=== PATIENT | male | born 1975 | race Caucasian/White ===

== ENCOUNTER 2019-01-13 23:40 | Inpatient (IN) | payer BC ==
[~2019-01-13] VITALS: Ht 175.3 cm; Wt 76.0 kg
--- NOTE | 2019-01-14 00:29 | PHYS DOC ---
Past Medical History Past Medical History: Anxiety, Hypertension, HI Past Surgical History: Coronary Bypass Surgery Alcohol Use: None Drug Use: None Adult General Chief Complaint Chief Complaint: FLU SYMPTOM HPI HPI Patient is a 43 year old male who presents with nausea, vomitting, and generalized malaise. For the past two days the patient reports body aches and a decreased appetite. Today he started to feel more nauseous and have three episodes of nonbilious, nonbloody emesis. Patient has found nothing to relieve his symptoms. Food seems to make symptoms worse. In addition he has been having diarrhea that started today. Patient denies any chest pain, shortness of breath , cough, constipation, bloody stools, and blood urine. Review of Systems Review of Systems Constitutional: Reports fever and chills [] Eyes: Denies redness, or eye pain [] HENT: Denies nasal congestion or sore throat [] Respiratory: Denies cough or shortness of breath [] Cardiovascular: Denies chest pain or palpitations [] GI: Reports abdominal pain, nausea, vomiting, and diarrhea. Denies bloody stools[] : Denies dysuria or hematuria [] Musculoskeletal: Denies back pain or joint pain [] Integument: Denies rash or skin lesions [] Neurologic: Denies headache or focal weakness [] Complete systems were reviewed and found to be within normal limits, except as documented in this note. Current Medications Current Medications Current Medications Medications (Trade) Dose Ordered Sig/[facility] Start Time Stop Time Status Last Admin Dose Admin Famotidine (Pepcid Vial) 20 mg 1X ONCE 01/14/19 01:00 01/14/19 01:01 DC 01/14/19 01:00 20 MG Ketorolac Tromethamine (Toradol 15mg Vial) 15 mg 1X ONCE 01/14/19 01:00 01/14/19 01:01 DC 01/14/19 01:00 15 MG Ondansetron HCl (Zofran) 4 mg 1X ONCE 01/14/19 01:00 01/14/19 01:01 DC 01/14/19 01:01 4 MG Sodium Chloride 1,000 ml @ 1,000 mls/hr 1X ONCE 01/14/19 01:00 01/14/19 01:59 DC 01/14/19 01:02 1,000 MLS/HR Allergies Allergies Allergies Coded Allergies Type Severity Reaction Last Updated Verified No Known Drug Allergies 01/14/19 No Physical Exam Physical Exam Constitutional: Well developed, well nourished, no acute distress, non-toxic appearance. [] HENT: Normocephalic, atraumatic, bilateral external ears normal, oropharynx moist, no oral exudates, nose normal. [] Eyes: PERRLA, EOMI, conjunctiva normal, no discharge. [] Neck: Normal range of motion, no tenderness, supple, no stridor. [] Cardiovascular:Heart rate regular rhythm, no murmur [] Lungs & Thorax: Bilateral breath sounds clear to auscultation [] Abdomen: Bowel sounds normal, soft, no tenderness, no masses, no pulsatile masses. [] Skin: Warm, dry, no erythema, no rash. [] Back: No tenderness, no CVA tenderness. [] Extremities: No tenderness, no cyanosis, no clubbing, ROM intact, no edema. [] Neurologic: Alert and oriented X 3, normal motor function, normal sensory function, no focal deficits noted. [] Psychologic: Affect normal, judgement normal, mood normal. [] Current Patient Data Vital Signs Vital Signs Date Time Temp Pulse Resp B/P (MAP) Pulse Ox O2 Delivery O2 Flow Rate FiO2 01/13/19 23:46 99.6 121/76 (91) Room Air 99.6 Lab Values Laboratory Tests Test 01/14/19 00:35 01/14/19 00:40 Urine Collection Type Unknown Urine Color Yellow Urine Clarity Cloudy Urine pH 7.0 Urine Specific [place] 1.025 Urine Protein 100 mg/dL (NEG-TRACE) Urine Glucose (UA) Negative mg/dL (NEG) Urine Ketones (Stick) >=80 mg/dL (NEG) Urine Blood Negative (NEG) Urine Nitrite Negative (NEG) Urine Bilirubin Small (NEG) Urine Urobilinogen Dipstick 1.0 mg/dL (0.2 mg/dL) Urine Leukocyte Esterase Negative (NEG) Urine RBC 0 /HPF (0-2) Urine WBC 1-4 /HPF (0-4) Urine Squamous Epithelial Cells Few /LPF Urine Amorphous Sediment Present /HPF Urine Bacteria 0 /HPF (0-FEW) Urine Granular Casts Few /HPF Urine Mucus Marked /LPF White Blood Count 8.6 x10^3/uL (4.0-11.0) Red Blood Count 5.25 x10^6/uL (4.30-5.70) Hemoglobin 14.7 g/dL (13.0-17.5) Hematocrit 42.4 % (39.0-53.0) Mean Corpuscular Volume 81 fL (79-100) Mean Corpuscular Hemoglobin 28 pg (25-35) Mean Corpuscular Hemoglobin Concent 35 g/dL (31-37) Red Cell Distribution Width 12.9 % (11.5-14.5) Platelet Count 174 x10^3/uL (140-400) Neutrophils (%) (Auto) 75 % (31-73) H Lymphocytes (%) (Auto) 14 % (24-48) L Monocytes (%) (Auto) 10 % (0-9) H Eosinophils (%) (Auto) 0 % (0-3) Basophils (%) (Auto) 1 % (0-3) Neutrophils # (Auto) 6.5 x10^3uL (1.8-7.7) Lymphocytes # (Auto) 1.2 x10^3/uL (1.0-4.8) Monocytes # (Auto) 0.9 x10^3/uL (0.0-1.1) Eosinophils # (Auto) 0.0 x10^3/uL (0.0-0.7) Basophils # (Auto) 0.1 x10^3/uL (0.0-0.2) Sodium Level 137 mmol/L (136-145) Potassium Level 2.1 mmol/L (3.5-5.1) *L Chloride Level 95 mmol/L (98-107) L Carbon Dioxide Level 26 mmol/L (21-32) Anion Gap 16 (6-14) H Blood Urea Nitrogen 9 mg/dL (8-26) Creatinine 0.9 mg/dL (0.7-1.3) Estimated GFR (Cockcroft-Gault) 92.1 BUN/Creatinine Ratio 10 (6-20) Glucose Level 119 mg/dL (70-99) H Calcium Level 9.0 mg/dL (8.5-10.1) Total Bilirubin 0.4 mg/dL (0.2-1.0) Aspartate Amino Transferase (AST) 51 U/L (15-37) H Alanine Aminotransferase (ALT) 42 U/L (16-63) Alkaline Phosphatase 64 U/L (46-116) Total Protein 8.0 g/dL (6.4-8.2) Albumin 3.7 g/dL (3.4-5.0) Albumin/Globulin Ratio 0.9 (1.0-1.7) L Lipase 157 U/L (73-393) Laboratory Tests 01/14/19 00:40 Laboratory Tests 01/14/19 00:40 EKG EKG @0208 NSR at 96bpm, NO ST elevation, occasional PVC @0117 NSR at 84bpm, NO ST elevation, Q wave II- III, avF Radiology/Procedures Radiology/Procedures [] Course & Med Decision Making Course & Med Decision Making 43-year-old male presented to the emergency department due to nausea and vomiting. Patient reports that he has been unable to eat or drink anything for two days. Fluids provided with interval appointment. Pertinent Labs reviewed. Labs showed hypokalemia. Potassium replacement initiated, but will need admission for further replacement. Patient requiring admission for further evaluation and treatment. Discussed with (hospitalist) who is in agreement with admission. Discussed findings and plan with patient and family, who acknowledge understanding and agreement.(See chart for details) [] Dragon Disclaimer Dragon Disclaimer This electronic medical record was generated, in whole or in part, using a voice recognition dictation system. Departure Departure Impression: Primary Impression: Hypokalemia Additional Impressions: Nausea vomiting and diarrhea Dehydration Disposition: ADMITTED INPATIENT Admitting Physician: Other (Farela) Condition: STABLE Referrals: GE THOMPSON (PCP) Problem Qualifiers EDUARD SHAH DO Jan 14, 2019 00:29
[2019-01-14 00:51] LABS: BASO # 0.1 x10^3/uL (0.0-0.2); BASO % 1 % (0-3); EOS % 0 % (0-3); HEMATOCRIT 42.4 % (39.0-53.0); HEMOGLOBIN 14.7 g/dL (13.0-17.5); LYMPH # 1.2 x10^3/uL (1.0-4.8); LYMPH % 14 % (24-48); MEAN CORPUSCULAR HEMOGLOBIN 28 pg (25-35); MEAN CORPUSCULAR HGB CONC 35 g/dL (31-37); MEAN CORPUSCULAR VOLUME 81 fL (79-100); MONO # 0.9 x10^3/uL (0.0-1.1); MONO % 10 % (0-9); NEUT # 6.5 x10^3uL (1.8-7.7); NEUT % 75 % (31-73); PLATELET COUNT 174 x10^3/uL (140-400); RED BLOOD COUNT 5.25 x10^6/uL (4.30-5.70); RED CELL DISTRIBUTION WIDTH 12.9 % (11.5-14.5); WHITE BLOOD COUNT 8.6 x10^3/uL (4.0-11.0)
[2019-01-14 00:52] LABS: BILIRUBIN,URINE SMALL (NEG); CLARITY,URINE CLOUDY; COLOR,URINE YELLOW; NITRITE,URINE NEGATIVE (NEG); PROTEIN,URINE 100 mg/dL (NEG-TRACE)
[2019-01-14] MEDS ORDERED: IV NORMAL SALINE 1000ML BAG 1,000 ML IV ONE (01:00)
[2019-01-14] MEDS ORDERED: FAMOTIDINE 20 MG/2 ML VIAL IVP ONE (01:00)
[2019-01-14] MEDS ORDERED: KETOROLAC 15 MG/ML VIAL. IV ONE (01:00)
[2019-01-14] MEDS ORDERED: ONDANSETRON PF 4 MG/2 ML VIAL. IV ONE (01:00)
[2019-01-14 01:01] LABS: AMORPHOUS SEDIMENT,UR PRESENT /HPF; BACTERIA,URINE 0 /HPF (0-FEW); GRANULAR CASTS,URINE FEW /HPF; RBC,URINE 0 /HPF (0-2); SQUAMOUS EPITHELIAL CELL,UR FEW /LPF
[2019-01-14 01:04] LABS: ALBUMIN 3.7 g/dL (3.4-5.0); ALBUMIN/GLOBULIN RATIO 0.9 (1.0-1.7); CREATININE 0.9 mg/dL (0.7-1.3); GFR 92.1; TOTAL BILIRUBIN 0.4 mg/dL (0.2-1.0)
[2019-01-14 01:10] LABS: POTASSIUM 2.1 mmol/L (3.5-5.1)
[2019-01-14] MEDS ORDERED: IV RINGERS,LACTATED 1000ML 1,000 ML IV ONE (02:00)
[2019-01-14] MEDS ORDERED: POTASSIUM CHLORIDE 20 MEQ TABLET.ER. PO ONE ×2 (02:00→11:15)
[2019-01-14] MEDS ORDERED: ONDANSETRON PF 4 MG/2 ML VIAL. IV PRN (02:00)
[2019-01-14] MEDS ORDERED: POTASSIUM CITRATE 10 MEQ TABLET.ER PO ONE (02:45)
[2019-01-14] MEDS ORDERED: POTASSIUM CHLORIDE 20 MEQ/15 ML ORAL LIQUID. PO ONE (03:00)
[2019-01-14 03:35] VITALS: BP 96/57
[2019-01-14] MEDS ORDERED: CHLO25TA2 PO (06:06)
[2019-01-14] MEDS ORDERED: LOVA40TA2 PO (06:06)
[2019-01-14] MEDS ORDERED: METO50TA4 PO (06:06)
[2019-01-14] MEDS ORDERED: OMEP40CA5 PO (06:06)
[2019-01-14] MEDS ORDERED: ASPI-630 PO (06:07)
[2019-01-14] MEDS ORDERED: TRAM50TA PO (06:09)
[2019-01-14 07:00] VITALS: BP 106/55
--- NOTE | 2019-01-14 07:15 | NUR ---
Call placed to answering service and message left for Dr Finney re: concern for needing more potassium replacement. Looks as though pt received 40meq po in ER for K of 2.1. Waiting on return call or orders.
--- NOTE | 2019-01-14 07:50 | EKG ---
[facility] [address] [place] [address] Test Date: 2019-01-14 Test Time: 02:08:47 Pat Name: GISELL REYNOLDS Department: Room: [facility] Gender: M Cardiac Technologist: : 1975 Requested By: EDUARD SHAH Order Number: [id number] Reading MD: Jordan Hayes MD Measurements Intervals [place] Rate: 96 P: 26 AK: 154 QRS: 16 QRSD: 92 T: 131 QT: 370 QTc: 468 Interpretive Statements SINUS RHYTHM PVC'S NON-SPECIFIC ST/T CHANGES Electronically Signed On 01-15-2019 9:35:27 CDT by Jordan Hayes MD
--- NOTE | 2019-01-14 07:51 | EKG ---
[facility] [address] [place] [address] Test Date: 2019-01-14 Test Time: 01:17:14 Pat Name: GISELL REYNOLDS Department: Room: [facility] Gender: M Powderman: : 1975 Requested By: MANUEL ZHAO Order Number: [id number] Reading MD: Jordan Hayes MD Measurements Intervals [place] Rate: 84 P: 48 RI: 162 QRS: 18 QRSD: 96 T: 103 QT: 382 QTc: 455 Interpretive Statements SINUS RHYTHM NON-SPECIFIC ST/T CHANGES Electronically Signed On 01-15-2019 9:34:53 CDT by Jordan Hayes MD
[2019-01-14 10:25] LABS: PHOSPHORUS 1.8 mg/dL (2.6-4.7)
[2019-01-14 10:59] VITALS: BP 118/73
--- NOTE | 2019-01-14 11:52 | SSS ---
ADMIT DATE: DATE OF DISCHARGE: 01/15/2019. CHIEF COMPLAINT: Flu symptoms. HISTORY OF PRESENT ILLNESS: The patient is a pleasant 43-year-old male who had a 3-vessel bypass when he was 29 years old. He apparently has a genetic hypercholesterolemia. At this time, he presents with flu symptoms. He has been having nausea, vomiting, muscle aches, weakness. While in the ER, he was noted to be hypokalemic with a potassium of 2.1. Rates his symptoms at 10/10. He has associated anxiety, has been occurring for several days, described it as agonizing. I discussed the case with ER physician. We have admitted the patient. We are going to replace his potassium and hope to discharge tomorrow if he is stable. PAST MEDICAL HISTORY: Anxiety, hypertension, myocardial infarction, cardiac stents. Three-vessel cardiac bypass surgery at age 29. ALLERGIES: None. FAMILY HISTORY: Coronary artery disease. SOCIAL HISTORY: Does not drink, smoke or take drugs. MEDICATIONS: Reviewed, please refer to the MRAD. REVIEW OF SYSTEMS: GENERAL: No history of weight change, weakness or fevers. SKIN: No bruising, hair changes or rashes. EYES: No blurred, double or loss of vision. NOSE AND THROAT: No history of nosebleeds, hoarseness or sore throat. HEART: No history of palpitations, chest pain or shortness of breath on exertion. LUNGS: Denies cough, hemoptysis, wheezing or shortness of breath. GASTROINTESTINAL: He complains of nausea. GENITOURINARY: No history of frequency, urgency, hesitancy or nocturia. NEUROLOGIC: Denies history of numbness, tingling, tremor or weakness. PSYCHIATRIC: No history of panic, anxiety or depression. ENDOCRINE: No history of heat or cold intolerance, polyuria or polydipsia. EXTREMITIES: Denies muscle weakness, joint pain, pain on walking or stiffness. PHYSICAL EXAMINATION: VITAL SIGNS: Temperature afebrile, pulse 92, respirations 18, blood pressure 106/55. GENERAL: He is alert, cooperative. HEART: Normal S1, S2. LUNGS: Clear. ABDOMEN: Soft. EXTREMITIES: No edema. SKIN: No rash. ENDOCRINE: No thyromegaly. LYMPHATICS: No cervical nodes. HEMATOPOIETIC: No bruising. PSYCHIATRIC: He is stable. LABORATORY DATA: Sodium is 137, potassium 2.1, chloride 95, bicarbonate 26, BUN 9, creatinine 0.9, glucose 119. Hematology is normal. Urinalysis negative. ASSESSMENT AND PLAN: Gastroenteritis with secondary hypokalemia. The patient has been admitted. We are replacing his potassium, frequent labs, IV fluids, PT, OT, DVT prophylaxis. Full code. REZA CABRERA DO DR: LIU/earl JOB#: [id number] / [id number]
--- NOTE | 2019-01-14 12:00 | PDOC2 ---
GI CONSULT Reason For Consult: blood in stool HPI: HPI: Pleasant 43 y/o male who has been ill for a few days w/ n/v, diarrhea, and weakness. Evaluated in ER and admitted w/ hypokalemia. Called by RN this morning - GI asked to see re: blood in stool. He reports yellow blobs of stool w/ possibly some thin pinkish blood. Tolerating clears. H/o GERD on PPI - scheduled for EGD @ [facility] next month. No dysphagia. No hematemesis. No significant abd pain. Typically no diarrhea or constipation. No melena. Has intentionally lost weight w/ dietary changes. No h/o GI bleeding, PUD, or liver, pancreas, or GB problems. No previous colonoscopy. CAD on ASA. No recent atbx use. PMH: PMH: CAD, ME, HTN, HLE, anxiety, GERD CABG FH: Family History: No pertinent hx Social History: Smoke: No ALCOHOL: rare Drugs: None ROS: GEN: Denies fevers, chills, sweats HEENT: Denies blurred vision, sore throat CV: Denies chest pain RESP: Denies shortness of air, cough GI: Per HPI : Denies hematuria, dysuria ENDO: Denies weight changes NEURO: Denies confusion, dizziness MSK: +weakness SKIN: Denies jaundice, pruritus Vitals: Vitals: Vital Signs Date Time Temp Pulse Resp B/P (MAP) Pulse Ox O2 Delivery O2 Flow Rate FiO2 01/14/19 10:59 99.3 81 18 118/73 (88) 96 Room Air 99.3 Labs: Labs: Laboratory Tests Test 01/14/19 00:35 01/14/19 00:40 01/14/19 09:40 Urine Collection Type Unknown Urine Color Yellow Urine Clarity Cloudy Urine pH 7.0 Urine Specific [place] 1.025 Urine Protein 100 mg/dL (NEG-TRACE) Urine Glucose (UA) Negative mg/dL (NEG) Urine Ketones (Stick) >=80 mg/dL (NEG) Urine Blood Negative (NEG) Urine Nitrite Negative (NEG) Urine Bilirubin Small (NEG) Urine Urobilinogen Dipstick 1.0 mg/dL (0.2 mg/dL) Urine Leukocyte Esterase Negative (NEG) Urine RBC 0 /HPF (0-2) Urine WBC 1-4 /HPF (0-4) Urine Squamous Epithelial Cells Few /LPF Urine Amorphous Sediment Present /HPF Urine Bacteria 0 /HPF (0-FEW) Urine Granular Casts Few /HPF Urine Mucus Marked /LPF White Blood Count 8.6 x10^3/uL (4.0-11.0) Red Blood Count 5.25 x10^6/uL (4.30-5.70) Hemoglobin 14.7 g/dL (13.0-17.5) 13.6 g/dL (13.0-17.5) Hematocrit 42.4 % (39.0-53.0) Mean Corpuscular Volume 81 fL (79-100) Mean Corpuscular Hemoglobin 28 pg (25-35) Mean Corpuscular Hemoglobin Concent 35 g/dL (31-37) Red Cell Distribution Width 12.9 % (11.5-14.5) Platelet Count 174 x10^3/uL (140-400) Neutrophils (%) (Auto) 75 % (31-73) Lymphocytes (%) (Auto) 14 % (24-48) Monocytes (%) (Auto) 10 % (0-9) Eosinophils (%) (Auto) 0 % (0-3) Basophils (%) (Auto) 1 % (0-3) Neutrophils # (Auto) 6.5 x10^3uL (1.8-7.7) Lymphocytes # (Auto) 1.2 x10^3/uL (1.0-4.8) Monocytes # (Auto) 0.9 x10^3/uL (0.0-1.1) Eosinophils # (Auto) 0.0 x10^3/uL (0.0-0.7) Basophils # (Auto) 0.1 x10^3/uL (0.0-0.2) Sodium Level 137 mmol/L (136-145) Potassium Level 2.1 mmol/L (3.5-5.1) 2.4 mmol/L (3.5-5.1) Chloride Level 95 mmol/L (98-107) Carbon Dioxide Level 26 mmol/L (21-32) Anion Gap 16 (6-14) Blood Urea Nitrogen 9 mg/dL (8-26) Creatinine 0.9 mg/dL (0.7-1.3) Estimated GFR (Cockcroft-Gault) 92.1 BUN/Creatinine Ratio 10 (6-20) Glucose Level 119 mg/dL (70-99) Calcium Level 9.0 mg/dL (8.5-10.1) Total Bilirubin 0.4 mg/dL (0.2-1.0) Aspartate Amino Transf (AST/SGOT) 51 U/L (15-37) Alanine Aminotransferase (ALT/SGPT) 42 U/L (16-63) Alkaline Phosphatase 64 U/L (46-116) Total Protein 8.0 g/dL (6.4-8.2) Albumin 3.7 g/dL (3.4-5.0) Albumin/Globulin Ratio 0.9 (1.0-1.7) Lipase 157 U/L (73-393) Phosphorus Level 1.8 mg/dL (2.6-4.7) Magnesium Level 2.0 mg/dL (1.8-2.4) Allergies: Coded Allergies: No Known Drug Allergies (Unverified , 01/14/19) Medications: Current Medications Medications (Trade) Dose Ordered Sig/Letty Route PRN Reason Start Time Stop Time Status Last Admin Dose Admin Ondansetron HCl (Zofran) 4 mg 1X ONCE IV 01/14/19 01:00 01/14/19 01:01 CT 01/14/19 01:01 Famotidine (Pepcid Vial) 20 mg 1X ONCE IVP 01/14/19 01:00 01/14/19 01:01 CT 01/14/19 01:00 Ketorolac Tromethamine (Toradol 15mg Vial) 15 mg 1X ONCE IV 01/14/19 01:00 01/14/19 01:01 CT 01/14/19 01:00 Sodium Chloride 1,000 ml @ 1,000 mls/hr 1X ONCE IV 01/14/19 01:00 01/14/19 01:59 CT 01/14/19 01:02 Ringer's Solution 1,000 ml @ 150 mls/hr 1X ONCE IV 01/14/19 02:00 01/14/19 08:39 CT 01/14/19 03:43 Ondansetron HCl (Zofran) 4 mg PRN Q8HRS PRN IV NAUSEA/VOMITING 1ST CHOICE 01/14/19 02:00 01/15/19 01:59 01/14/19 10:17 Potassium Chloride (KCl Oral Soln) 40 meq 1X ONCE PO 01/14/19 03:00 01/14/19 03:01 DC 01/14/19 02:48 Imaging: Imaging: none PE: GEN: NAD HEENT: Atraumatic, PERRL LUNGS: CTAB HEART: RRR ABD: NABS, S/ND/NT EXTREMITY: No edema SKIN: No rashes, no jaundice NEURO/PSYCH: A & O 3 A/P: A/P: N/v, diarrhea Hypokalemia - per primary GERD - on PPI CRC screen - average risk Elevated AST CAD on ASA -- ?infectious Plans to check hemoccult, will also add fecal leukocytes and rotavirus. ( Searched for Norovirus - apparently not available?) No imaging - can check x-ray. Agree w/ continuing PPI. Okay to ADAT. Follow-up w/ [facility] for EGD as planned. Consider holding chlorthalidone w/ hypokalemia. NORMAN BOWERS Jan 14, 2019 12:00
[2019-01-14] MEDS: PANTOPRAZOLE 40 MG TABLET.DR. PO SCH (12:14)
[2019-01-14] MEDS: METOPROLOL SUCC 24HR ER 50 MG TAB.ER.24H. PO SCH (12:14)
[2019-01-14] MEDS ORDERED: CHLORTHALIDONE 25 MG TABLET. PO SCH ×2 (12:30→21:00)
--- NOTE | 2019-01-14 14:05 | RAD ---
EXAM: Abdomen acute complete. HISTORY: Diarrhea. Pain. COMPARISON: None. FINDINGS: A frontal view of the chest and frontal upright and supine views of the abdomen are obtained. There is no infiltrate, pleural effusion or pneumothorax. The heart is normal in size. There is evidence of prior median sternotomy. There are nonspecific air-filled loops of bowel within the abdomen. There is no evidence of bowel obstruction. There is no free air. IMPRESSION: 1. No acute pulmonary finding. 2. Nonobstructive bowel gas pattern. Electronically signed by: Mila Sotomayor MD (01/14/2019 2:03 PM) [place] [id number]
[2019-01-14 15:00] VITALS: BP 112/79
[2019-01-14 15:26] LABS: FECAL OB PT NEGATIVE (NEG)
--- NOTE | 2019-01-14 16:04 | NUR ---
SW following pt for anticipated dc needs. Chart reviewed. Pt lives at home with family. Pt is independent with ADL's and no skilled needs at this time. No dc recommendation and SW needs noted at this time. Will continue to assess.
[2019-01-14 19:51] VITALS: BP 131/87
[2019-01-14] MEDS: HYDROcodone/APAP 5/325MG 1 TAB TABLET PO PRN (20:56)
[2019-01-14] MEDS: ATORVASTATIN CALCIUM 10 MG TABLET. PO SCH (20:56)
[2019-01-14] MEDS: POTASSIUM PHOSPHATE DIBASIC 13.6 MMOL in IV DEXTROSE 5% 100ML 100 ML IV SCH ×2 (20:57→22:23)
[2019-01-14 23:11] VITALS: BP 130/73
[2019-01-15 03:27] VITALS: BP 125/82
[2019-01-15 07:15] VITALS: BP 118/74
[2019-01-15] MEDS: PANTOPRAZOLE 40 MG TABLET.DR. PO SCH (08:07)
[2019-01-15] MEDS: METOPROLOL SUCC 24HR ER 50 MG TAB.ER.24H. PO SCH (08:08)
[2019-01-15] MEDS: HYDROcodone/APAP 5/325MG 1 TAB TABLET PO PRN ×2 (08:12→20:14)
[2019-01-15 09:00] LABS: BASO # 0.1 x10^3/uL (0.0-0.2); BASO % 1 % (0-3); EOS % 0 % (0-3); HEMATOCRIT 41.3 % (39.0-53.0); HEMOGLOBIN 14.6 g/dL (13.0-17.5); LYMPH # 1.6 x10^3/uL (1.0-4.8); LYMPH % 24 % (24-48); MEAN CORPUSCULAR HEMOGLOBIN 29 pg (25-35); MEAN CORPUSCULAR HGB CONC 35 g/dL (31-37); MEAN CORPUSCULAR VOLUME 81 fL (79-100); MONO # 0.9 x10^3/uL (0.0-1.1); MONO % 13 % (0-9); NEUT # 4.2 x10^3uL (1.8-7.7); NEUT % 62 % (31-73); PLATELET COUNT 169 x10^3/uL (140-400); RED BLOOD COUNT 5.12 x10^6/uL (4.30-5.70); RED CELL DISTRIBUTION WIDTH 13.3 % (11.5-14.5); WHITE BLOOD COUNT 6.8 x10^3/uL (4.0-11.0)
[2019-01-15 09:18] LABS: CALCIUM 8.9 mg/dL (8.5-10.1); CREATININE 0.8 mg/dL (0.7-1.3); GFR 105.5
[2019-01-15 09:22] LABS: POTASSIUM 2.4 mmol/L (3.5-5.1)
--- NOTE | 2019-01-15 09:31 | NUR ---
Received call from Aracelis in lab with critical potassium 2.4. Dr. aHrp on unit, notified, and orders received.
[2019-01-15] MEDS ORDERED: POTASSIUM CHLORIDE 20 MEQ TABLET.ER. PO ONE ×4 (10:30→20:00)
--- NOTE | 2019-01-15 10:34 | PDOC ---
PROGRESS NOTES Chief Complaint Chief Complaint CC: Dehydration w/ Nausea/Vomiting/Diarrhea Hypokalemia Hypophosphatemia CAD [place] HTN CABG Anxiety GERD History of Present Illness History of Present Illness Pt seen and examined this morning Resting comfortably no new episodes of emesis No new complaints Vitals Vitals Vital Signs Date Time Temp Pulse Resp B/P (MAP) Pulse Ox O2 Delivery O2 Flow Rate FiO2 01/15/19 09:12 17 01/15/19 08:12 Room Air 01/15/19 08:08 84 118/74 01/15/19 07:15 99.1 97 99.1 Physical Exam General: Alert, Oriented X3, Cooperative, No acute distress Heart: Regular rate, Normal S1, Normal S2, No murmurs Lungs: Clear, Other (no crackles or wheezing) Abdomen: Normal bowel sounds, Soft, No tenderness Extremities: No clubbing, No cyanosis, No edema, Normal pulses Skin: No rashes, No breakdown, No significant lesion Labs LABS Laboratory Tests Test 01/14/19 13:00 01/14/19 13:05 01/15/19 08:33 Stool Occult Blood Negative (NEG) Glucose (Fingerstick) 120 mg/dL (70-99) White Blood Count 6.8 x10^3/uL (4.0-11.0) Red Blood Count 5.12 x10^6/uL (4.30-5.70) Hemoglobin 14.6 g/dL (13.0-17.5) Hematocrit 41.3 % (39.0-53.0) Mean Corpuscular Volume 81 fL (79-100) Mean Corpuscular Hemoglobin 29 pg (25-35) Mean Corpuscular Hemoglobin Concent 35 g/dL (31-37) Red Cell Distribution Width 13.3 % (11.5-14.5) Platelet Count 169 x10^3/uL (140-400) Neutrophils (%) (Auto) 62 % (31-73) Lymphocytes (%) (Auto) 24 % (24-48) Monocytes (%) (Auto) 13 % (0-9) Eosinophils (%) (Auto) 0 % (0-3) Basophils (%) (Auto) 1 % (0-3) Neutrophils # (Auto) 4.2 x10^3uL (1.8-7.7) Lymphocytes # (Auto) 1.6 x10^3/uL (1.0-4.8) Monocytes # (Auto) 0.9 x10^3/uL (0.0-1.1) Eosinophils # (Auto) 0.0 x10^3/uL (0.0-0.7) Basophils # (Auto) 0.1 x10^3/uL (0.0-0.2) Sodium Level 137 mmol/L (136-145) Potassium Level 2.4 mmol/L (3.5-5.1) Chloride Level 95 mmol/L (98-107) Carbon Dioxide Level 29 mmol/L (21-32) Anion Gap 13 (6-14) Blood Urea Nitrogen 5 mg/dL (8-26) Creatinine 0.8 mg/dL (0.7-1.3) Estimated GFR (Cockcroft-Gault) 105.5 Glucose Level 97 mg/dL (70-99) Calcium Level 8.9 mg/dL (8.5-10.1) Review of Systems Review of Systems Denies F/C, CP or SOA Assessment and Plan Assessmemt and Plan Assessment: Gastroenteritis Hypokalemia Dehydration w/ Nausea/Vomiting/Diarrhea Hypophosphatemia CAD [place] HTN CABG Anxiety GERD Congenital Hypercholesterolemia Plan: 40mg PO KCl ordered, recheck potassium Hold diuretic given low K Advanced diet as tolerated Hemoccult (-), stool sample pending, appreciate GI recommendations Home Rx DVT ppx PT/OT orders Problems Medical Problems: (1) Dehydration Status: Acute (2) Hypokalemia Status: Acute (3) Nausea vomiting and diarrhea Status: Acute Comment Review of Relevant I have reviewed the following items marisel (where applicable) has been applied. Labs Laboratory Tests Test 01/14/19 00:35 01/14/19 00:40 01/14/19 09:40 01/14/19 13:00 Urine Collection Type Unknown Urine Color Yellow Urine Clarity Cloudy Urine pH 7.0 Urine Specific [place] 1.025 Urine Protein 100 mg/dL (NEG-TRACE) Urine Glucose (UA) Negative mg/dL (NEG) Urine Ketones (Stick) >=80 mg/dL (NEG) Urine Blood Negative (NEG) Urine Nitrite Negative (NEG) Urine Bilirubin Small (NEG) Urine Urobilinogen Dipstick 1.0 mg/dL (0.2 mg/dL) Urine Leukocyte Esterase Negative (NEG) Urine RBC 0 /HPF (0-2) Urine WBC 1-4 /HPF (0-4) Urine Squamous Epithelial Cells Few /LPF Urine Amorphous Sediment Present /HPF Urine Bacteria 0 /HPF (0-FEW) Urine Granular Casts Few /HPF Urine Mucus Marked /LPF White Blood Count 8.6 x10^3/uL (4.0-11.0) Red Blood Count 5.25 x10^6/uL (4.30-5.70) Hemoglobin 14.7 g/dL (13.0-17.5) 13.6 g/dL (13.0-17.5) Hematocrit 42.4 % (39.0-53.0) Mean Corpuscular Volume 81 fL (79-100) Mean Corpuscular Hemoglobin 28 pg (25-35) Mean Corpuscular Hemoglobin Concent 35 g/dL (31-37) Red Cell Distribution Width 12.9 % (11.5-14.5) Platelet Count 174 x10^3/uL (140-400) Neutrophils (%) (Auto) 75 % (31-73) Lymphocytes (%) (Auto) 14 % (24-48) Monocytes (%) (Auto) 10 % (0-9) Eosinophils (%) (Auto) 0 % (0-3) Basophils (%) (Auto) 1 % (0-3) Neutrophils # (Auto) 6.5 x10^3uL (1.8-7.7) Lymphocytes # (Auto) 1.2 x10^3/uL (1.0-4.8) Monocytes # (Auto) 0.9 x10^3/uL (0.0-1.1) Eosinophils # (Auto) 0.0 x10^3/uL (0.0-0.7) Basophils # (Auto) 0.1 x10^3/uL (0.0-0.2) Sodium Level 137 mmol/L (136-145) Potassium Level 2.1 mmol/L (3.5-5.1) 2.4 mmol/L (3.5-5.1) Chloride Level 95 mmol/L (98-107) Carbon Dioxide Level 26 mmol/L (21-32) Anion Gap 16 (6-14) Blood Urea Nitrogen 9 mg/dL (8-26) Creatinine 0.9 mg/dL (0.7-1.3) Estimated GFR (Cockcroft-Gault) 92.1 BUN/Creatinine Ratio 10 (6-20) Glucose Level 119 mg/dL (70-99) Calcium Level 9.0 mg/dL (8.5-10.1) Total Bilirubin 0.4 mg/dL (0.2-1.0) Aspartate Amino Transf (AST/SGOT) 51 U/L (15-37) Alanine Aminotransferase (ALT/SGPT) 42 U/L (16-63) Alkaline Phosphatase 64 U/L (46-116) Total Protein 8.0 g/dL (6.4-8.2) Albumin 3.7 g/dL (3.4-5.0) Albumin/Globulin Ratio 0.9 (1.0-1.7) Lipase 157 U/L (73-393) Phosphorus Level 1.8 mg/dL (2.6-4.7) Magnesium Level 2.0 mg/dL (1.8-2.4) Stool Occult Blood Negative (NEG) Test 01/14/19 13:05 01/15/19 08:33 Glucose (Fingerstick) 120 mg/dL (70-99) White Blood Count 6.8 x10^3/uL (4.0-11.0) Red Blood Count 5.12 x10^6/uL (4.30-5.70) Hemoglobin 14.6 g/dL (13.0-17.5) Hematocrit 41.3 % (39.0-53.0) Mean Corpuscular Volume 81 fL (79-100) Mean Corpuscular Hemoglobin 29 pg (25-35) Mean Corpuscular Hemoglobin Concent 35 g/dL (31-37) Red Cell Distribution Width 13.3 % (11.5-14.5) Platelet Count 169 x10^3/uL (140-400) Neutrophils (%) (Auto) 62 % (31-73) Lymphocytes (%) (Auto) 24 % (24-48) Monocytes (%) (Auto) 13 % (0-9) Eosinophils (%) (Auto) 0 % (0-3) Basophils (%) (Auto) 1 % (0-3) Neutrophils # (Auto) 4.2 x10^3uL (1.8-7.7) Lymphocytes # (Auto) 1.6 x10^3/uL (1.0-4.8) Monocytes # (Auto) 0.9 x10^3/uL (0.0-1.1) Eosinophils # (Auto) 0.0 x10^3/uL (0.0-0.7) Basophils # (Auto) 0.1 x10^3/uL (0.0-0.2) Sodium Level 137 mmol/L (136-145) Potassium Level 2.4 mmol/L (3.5-5.1) Chloride Level 95 mmol/L (98-107) Carbon Dioxide Level 29 mmol/L (21-32) Anion Gap 13 (6-14) Blood Urea Nitrogen 5 mg/dL (8-26) Creatinine 0.8 mg/dL (0.7-1.3) Estimated GFR (Cockcroft-Gault) 105.5 Glucose Level 97 mg/dL (70-99) Calcium Level 8.9 mg/dL (8.5-10.1) Laboratory Tests Test 01/14/19 13:00 01/14/19 13:05 01/15/19 08:33 Stool Occult Blood Negative (NEG) Glucose (Fingerstick) 120 mg/dL (70-99) White Blood Count 6.8 x10^3/uL (4.0-11.0) Red Blood Count 5.12 x10^6/uL (4.30-5.70) Hemoglobin 14.6 g/dL (13.0-17.5) Hematocrit 41.3 % (39.0-53.0) Mean Corpuscular Volume 81 fL (79-100) Mean Corpuscular Hemoglobin 29 pg (25-35) Mean Corpuscular Hemoglobin Concent 35 g/dL (31-37) Red Cell Distribution Width 13.3 % (11.5-14.5) Platelet Count 169 x10^3/uL (140-400) Neutrophils (%) (Auto) 62 % (31-73) Lymphocytes (%) (Auto) 24 % (24-48) Monocytes (%) (Auto) 13 % (0-9) Eosinophils (%) (Auto) 0 % (0-3) Basophils (%) (Auto) 1 % (0-3) Neutrophils # (Auto) 4.2 x10^3uL (1.8-7.7) Lymphocytes # (Auto) 1.6 x10^3/uL (1.0-4.8) Monocytes # (Auto) 0.9 x10^3/uL (0.0-1.1) Eosinophils # (Auto) 0.0 x10^3/uL (0.0-0.7) Basophils # (Auto) 0.1 x10^3/uL (0.0-0.2) Sodium Level 137 mmol/L (136-145) Potassium Level 2.4 mmol/L (3.5-5.1) Chloride Level 95 mmol/L (98-107) Carbon Dioxide Level 29 mmol/L (21-32) Anion Gap 13 (6-14) Blood Urea Nitrogen 5 mg/dL (8-26) Creatinine 0.8 mg/dL (0.7-1.3) Estimated GFR (Cockcroft-Gault) 105.5 Glucose Level 97 mg/dL (70-99) Calcium Level 8.9 mg/dL (8.5-10.1) Microbiology 01/14/19 Fecal Leukocyte Stain - Final, Complete Medications Current Medications Ondansetron HCl (Zofran) 4 mg 1X ONCE IV Last administered on 01/14/19at 01:01; Start 01/14/19 at 01:00; Stop 01/14/19 at 01:01; Status DC Famotidine (Pepcid Vial) 20 mg 1X ONCE IVP Last administered on 01/14/19at 01:00 ; Start 01/14/19 at 01:00; Stop 01/14/19 at 01:01; Status DC Ketorolac Tromethamine (Toradol 15mg Vial) 15 mg 1X ONCE IV Last administered on 01/14/19at 01:00; Start 01/14/19 at 01:00; Stop 01/14/19 at 01:01; Status DC Sodium Chloride 1,000 ml @ 1,000 mls/hr 1X ONCE IV Last administered on at 01:02; Start 01/14/19 at 01:00; Stop 01/14/19 at 01:59; Status DC Potassium Chloride (Klor-Con) 40 meq 1X ONCE PO ; Start 01/14/19 at 02:00; Stop 01/14/19 at 02:38; Status DC Ringer's Solution 1,000 ml @ 150 mls/hr 1X ONCE IV Last administered on 03:43; Start 01/14/19 at 02:00; Stop 01/14/19 at 08:39; Status DC Ondansetron HCl (Zofran) 4 mg PRN Q8HRS PRN IV NAUSEA/VOMITING 1ST CHOICE Last administered on 01/14/19 10:17; Start 01/14/19 at 02:00; Stop 01/15/19 at 01:59; Status DC Potassium Citrate (Urocit-K) 50 meq 1X ONCE PO ; Start 01/14/19 at 02:45; Stop 01/14/19 at 02:46; Status UNV Potassium Chloride (KCl Oral Soln) 40 meq 1X ONCE PO Last administered on 02:48; Start 01/14/19 at 03:00; Stop 01/14/19 at 03:01; Status DC Potassium Chloride (Klor-Con) 40 meq 1X ONCE PO Last administered on 01/14/19 12:14; Start 01/14/19 at 11:15; Stop 01/14/19 at 11:16; Status DC Chlorthalidone (Thalitone) 25 mg DAILY PO ; Start 01/14/19 at 12:30; Stop at 14:31; Status DC Metoprolol Succinate (Toprol Xl) 50 mg DAILY PO Last administered on 01/15/19 08:08; Start 01/14/19 at 12:30 Tramadol HCl (Ultram) 50 mg PRN Q8HRS PRN PO MILD PAIN; Start 01/14/19 at 11:30 Atorvastatin Calcium (Lipitor) 10 mg QHS PO Last administered on 01/14/19 20:56 ; Start 01/14/19 at 21:00 Pantoprazole Sodium (Protonix) 40 mg DAILYAC PO Last administered on 01/15/19 08:07; Start 01/14/19 at 12:30 Chlorthalidone (Thalitone) 25 mg QHS PO Last administered on 01/14/19 20:57; Start 01/14/19 at 21:00; Status Future Hold Potassium Phosphate 13.6 mmol/Dextrose 104.5333 ml @ 52.267 m... Q2H IV Last administered on 01/14/19 22:23; Start 01/14/19 at 17:30; Stop 01/14/19 at 21:29; Status DC Acetaminophen/ Hydrocodone Bitart (Lortab 5/325) 1 tab QIDPRN PRN PO MOD- SEVERE PAIN Last administered on 01/15/19at 08:12; Start 01/14/19 at 19:30 Potassium Chloride (Klor-Con) 40 meq 1X ONCE PO Last administered on 01/15/19at 09:58; Start 01/15/19 at 10:30; Stop 01/15/19 at 10:31 Potassium Chloride (Klor-Con) 40 meq 1X ONCE PO ; Start 01/15/19 at 14:00; Stop 01/15/19 at 14:01 Active Scripts Active Reported Tramadol Hcl 50 Mg Tablet 50 Mg PO Q8HRS PRN Aspirin 81 Mg Tab.chew 1 Tab PO DAILY Omeprazole 40 Mg Capsule.dr 40 Mg PO DAILY Lovastatin 40 Mg Tablet 40 Mg PO HS Toprol Xl (Metoprolol Succinate) 50 Mg Tab.er.24h 50 Mg PO DAILY Chlorthalidone 25 Mg Tablet 25 Mg PO DAILY Vitals/I & O Vital Sign - Last 24 Hours 01/14/19 01/14/19 01/14/19 01/14/19 10:59 12:14 15:00 19:51 Temp 99.3 98.9 101.7 99.3 98.9 101.7 Pulse 81 81 83 87 Resp 18 18 18 B/P (MAP) 118/73 (88) 118/73 112/79 (90) 131/87 (102) Pulse Ox 96 99 96 O2 Delivery Room Air Room Air Room Air 01/14/19 01/14/19 01/14/19 01/15/19 20:56 21:00 23:11 03:27 Temp 98.4 99.5 98.4 99.5 Pulse 75 79 Resp 18 18 18 B/P (MAP) 130/73 (92) 125/82 (96) Pulse Ox 96 97 O2 Delivery Room Air Room Air Room Air Room Air 01/15/19 01/15/19 01/15/19 01/15/19 07:15 08:08 08:12 09:12 Temp 99.1 99.1 Pulse 84 84 Resp 18 17 17 B/P (MAP) 118/74 (89) 118/74 Pulse Ox 97 O2 Delivery Room Air Room Air Intake and Output 4/3/19 4/3/19 4/4/19 15:00 23:00 07:00 Intake Total 880 ml 590 ml 1050 ml Balance 880 ml 590 ml 1050 ml REZA CABRERA III DO Jan 15, 2019 10:34
[2019-01-15 11:04] VITALS: BP 124/85
--- NOTE | 2019-01-15 12:12 | PDOC ---
Subjective: Subjective: Tolerating PO - had cereal for breakfast, really hungry now. No abd pain. Hasn't had a stool in a long time. No bleeding. Objective: Vital Signs: Vital Signs Date Time Temp Pulse Resp B/P (MAP) Pulse Ox O2 Delivery O2 Flow Rate FiO2 01/15/19 11:04 98.8 71 20 124/85 (98) 98 Room Air 98.8 Labs: Laboratory Tests Test 01/14/19 13:00 01/14/19 13:05 01/15/19 08:33 Stool Occult Blood Negative Glucose (Fingerstick) 120 mg/dL White Blood Count 6.8 x10^3/uL Red Blood Count 5.12 x10^6/uL Hemoglobin 14.6 g/dL Hematocrit 41.3 % Mean Corpuscular Volume 81 fL Mean Corpuscular Hemoglobin 29 pg Mean Corpuscular Hemoglobin Concent 35 g/dL Red Cell Distribution Width 13.3 % Platelet Count 169 x10^3/uL Neutrophils (%) (Auto) 62 % Lymphocytes (%) (Auto) 24 % Monocytes (%) (Auto) 13 % Eosinophils (%) (Auto) 0 % Basophils (%) (Auto) 1 % Neutrophils # (Auto) 4.2 x10^3uL Lymphocytes # (Auto) 1.6 x10^3/uL Monocytes # (Auto) 0.9 x10^3/uL Eosinophils # (Auto) 0.0 x10^3/uL Basophils # (Auto) 0.1 x10^3/uL Sodium Level 137 mmol/L Potassium Level 2.4 mmol/L Chloride Level 95 mmol/L Carbon Dioxide Level 29 mmol/L Anion Gap 13 Blood Urea Nitrogen 5 mg/dL Creatinine 0.8 mg/dL Estimated GFR (Cockcroft-Gault) 105.5 Glucose Level 97 mg/dL Calcium Level 8.9 mg/dL FECAL WBC,GRAM STAIN Final WBCS NONE PRESENT PE: GEN: NAD LUNGS: CTAB HEART: RRR ABD: NABS, S/ND/NT NEURO/PSYCH: A & O 3 A/P: N/v, diarrhea - resolved Hypokalemia - ongoing, per primary -- GI symptoms resolved, hypokalemia persists. NORMAN BOWERS Jan 15, 2019 12:12
[2019-01-15] MEDS: traMADol 50 MG TABLET PO PRN (14:32)
--- NOTE | 2019-01-15 14:47 | DS ---
DATE OF DISCHARGE: 01/15/2019 ADMISSION DIAGNOSES: 1. Gastroenteritis with hypokalemia and dehydration. 2. History of coronary bypass at age 29. DISCHARGE DIAGNOSES: 1. Resolving gastroenteritis. 2. Resolving hypokalemia. HOSPITAL COURSE: The patient is a pleasant 43-year-old male who basically presented with gastroenteritis with nausea, vomiting and abdominal pain and had hypokalemia. He was admitted. We are replacing his potassium. He has received several doses. This morning, I saw him and I examined him. His heart tones were normal. His lungs were clear. He states he wants to go home. I discussed the case with the case management team and the nurse who is taking care of him. If he continues to do better this afternoon and if his potassium normalizes, we plan to discharge. DISPOSITION: Home. ACTIVITY: As tolerated. DIET: Low sodium. MEDICATIONS: Please see the MRAD. TOTAL TIME ON DISCHARGE: 31 minutes. REZA CABRERA DO DR: LIU/earl JOB#: [id number] / [id number]
[2019-01-15 15:02] VITALS: BP 120/79
--- NOTE | 2019-01-15 17:37 | EKG ---
[facility] [address] [place] [address] Test Date: 2019-01-15 Test Time: 17:23:51 Pat Name: GISELL REYNOLDS Department: Room: [facility] Gender: M Bag Inspector: : 1975 Requested By: REZA CABRERA Order Number: [id number] Reading MD: Jordan Hayes MD Measurements Intervals [place] Rate: 69 P: 48 NM: 154 QRS: 18 QRSD: 86 T: 97 QT: 412 QTc: 443 Interpretive Statements SINUS RHYTHM Electronically Signed On 01-19-2019 15:52:33 CDT by Jordan Hayes MD
[2019-01-15 19:40] VITALS: BP 112/73
[2019-01-15] MEDS: ATORVASTATIN CALCIUM 10 MG TABLET. PO SCH (20:13)
[2019-01-15 23:26] VITALS: BP 111/71
[2019-01-16 03:07] VITALS: BP 132/83
[2019-01-16 03:11] VITALS: BP 118/78
[2019-01-16] MEDS: HYDROcodone/APAP 5/325MG 1 TAB TABLET PO PRN ×2 (04:35→16:55)
[2019-01-16 04:59] LABS: BASO % 1 % (0-3); EOS % 0 % (0-3); HEMATOCRIT 42.9 % (39.0-53.0); HEMOGLOBIN 14.5 g/dL (13.0-17.5); LYMPH # 1.8 x10^3/uL (1.0-4.8); LYMPH % 26 % (24-48); MEAN CORPUSCULAR HEMOGLOBIN 28 pg (25-35); MEAN CORPUSCULAR HGB CONC 34 g/dL (31-37); MEAN CORPUSCULAR VOLUME 82 fL (79-100); MONO # 0.8 x10^3/uL (0.0-1.1); MONO % 11 % (0-9); NEUT # 4.3 x10^3uL (1.8-7.7); NEUT % 62 % (31-73); PLATELET COUNT 153 x10^3/uL (140-400); RED BLOOD COUNT 5.25 x10^6/uL (4.30-5.70); RED CELL DISTRIBUTION WIDTH 13.2 % (11.5-14.5)
[2019-01-16 05:26] LABS: CALCIUM 9.2 mg/dL (8.5-10.1); CREATININE 0.8 mg/dL (0.7-1.3); GFR 105.5
[2019-01-16 05:35] LABS: POTASSIUM 2.8 mmol/L (3.5-5.1)
[2019-01-16] MEDS ORDERED: POTASSIUM CHLORIDE 20 MEQ TABLET.ER. PO ONE ×3 (06:00→12:00)
[2019-01-16] MEDS: PANTOPRAZOLE 40 MG TABLET.DR. PO SCH (06:11)
[2019-01-16] MEDS: POTASSIUM CHLORIDE 10MEQ 100 ML IV SCH ×2 (06:12→08:25)
[2019-01-16 07:00] VITALS: BP 117/75
[2019-01-16] MEDS: METOPROLOL SUCC 24HR ER 50 MG TAB.ER.24H. PO SCH (10:05)
[2019-01-16] MEDS: traMADol 50 MG TABLET PO PRN (10:09)
[2019-01-16 10:39] VITALS: BP 123/77
--- NOTE | 2019-01-16 11:09 | PDOC ---
PROGRESS NOTES Chief Complaint Chief Complaint CC: Dehydration w/ Nausea/Vomiting/Diarrhea Hypokalemia Hypophosphatemia CAD PR HTN CABG Anxiety GERD History of Present Illness History of Present Illness Pt seen and examined this morning, at bedside Discussed possible discharge today with pt and , pending afternoon potassium no N/V or diarrhea No new complaints Vitals Vitals Vital Signs Date Time Temp Pulse Resp B/P (MAP) Pulse Ox O2 Delivery O2 Flow Rate FiO2 01/16/19 10:39 98.5 72 17 123/77 (92) 97 Room Air 98.5 Physical Exam General: Alert, Oriented X3, Cooperative, No acute distress Heart: Regular rate, Normal S1, Normal S2, No murmurs Lungs: Clear, Other (No crackles or wheezing) Abdomen: Normal bowel sounds, Soft, No tenderness Extremities: No clubbing, No cyanosis, No edema, Normal pulses Skin: No rashes, No breakdown, No significant lesion Labs LABS Laboratory Tests Test 01/15/19 15:40 01/16/19 04:30 Potassium Level 2.5 mmol/L (3.5-5.1) 2.8 mmol/L (3.5-5.1) White Blood Count 7.0 x10^3/uL (4.0-11.0) Red Blood Count 5.25 x10^6/uL (4.30-5.70) Hemoglobin 14.5 g/dL (13.0-17.5) Hematocrit 42.9 % (39.0-53.0) Mean Corpuscular Volume 82 fL (79-100) Mean Corpuscular Hemoglobin 28 pg (25-35) Mean Corpuscular Hemoglobin Concent 34 g/dL (31-37) Red Cell Distribution Width 13.2 % (11.5-14.5) Platelet Count 153 x10^3/uL (140-400) Neutrophils (%) (Auto) 62 % (31-73) Lymphocytes (%) (Auto) 26 % (24-48) Monocytes (%) (Auto) 11 % (0-9) Eosinophils (%) (Auto) 0 % (0-3) Basophils (%) (Auto) 1 % (0-3) Neutrophils # (Auto) 4.3 x10^3uL (1.8-7.7) Lymphocytes # (Auto) 1.8 x10^3/uL (1.0-4.8) Monocytes # (Auto) 0.8 x10^3/uL (0.0-1.1) Eosinophils # (Auto) 0.0 x10^3/uL (0.0-0.7) Basophils # (Auto) 0.0 x10^3/uL (0.0-0.2) Sodium Level 138 mmol/L (136-145) Chloride Level 98 mmol/L (98-107) Carbon Dioxide Level 29 mmol/L (21-32) Anion Gap 11 (6-14) Blood Urea Nitrogen 8 mg/dL (8-26) Creatinine 0.8 mg/dL (0.7-1.3) Estimated GFR (Cockcroft-Gault) 105.5 Glucose Level 83 mg/dL (70-99) Calcium Level 9.2 mg/dL (8.5-10.1) Magnesium Level 2.1 mg/dL (1.8-2.4) Review of Systems Review of Systems Denies N/V, F/C, changes in bowel habits, CP or SOA Assessment and Plan Assessmemt and Plan Assessment: Gastroenteritis Hypokalemia Dehydration w/ Nausea/Vomiting/Diarrhea Hypophosphatemia CAD PR HTN CABG Anxiety GERD Congenital Hypercholesterolemia Plan: D/c pending pm lab recheck, potassium level 40Meq PO KCl, recheck this afternoon Rx given as outpt for 20Meq KCL Rx given for 0.5mg Xanax, prn anxiety F/u with PCP in 1-2 weeks Hold diuretic given low K Advanced diet as tolerated Hemoccult (-), appreciate GI recommendations Home Rx DVT ppx PT/OT orders Problems Medical Problems: (1) Dehydration Status: Acute (2) Hypokalemia Status: Acute (3) Nausea vomiting and diarrhea Status: Acute Comment Review of Relevant I have reviewed the following items marisel (where applicable) has been applied. Labs Laboratory Tests Test 01/14/19 13:00 01/14/19 13:05 01/15/19 08:33 01/15/19 15:40 Stool Occult Blood Negative (NEG) Stool Rotavirus Antigen Negative (Negative) Glucose (Fingerstick) 120 mg/dL (70-99) White Blood Count 6.8 x10^3/uL (4.0-11.0) Red Blood Count 5.12 x10^6/uL (4.30-5.70) Hemoglobin 14.6 g/dL (13.0-17.5) Hematocrit 41.3 % (39.0-53.0) Mean Corpuscular Volume 81 fL (79-100) Mean Corpuscular Hemoglobin 29 pg (25-35) Mean Corpuscular Hemoglobin Concent 35 g/dL (31-37) Red Cell Distribution Width 13.3 % (11.5-14.5) Platelet Count 169 x10^3/uL (140-400) Neutrophils (%) (Auto) 62 % (31-73) Lymphocytes (%) (Auto) 24 % (24-48) Monocytes (%) (Auto) 13 % (0-9) Eosinophils (%) (Auto) 0 % (0-3) Basophils (%) (Auto) 1 % (0-3) Neutrophils # (Auto) 4.2 x10^3uL (1.8-7.7) Lymphocytes # (Auto) 1.6 x10^3/uL (1.0-4.8) Monocytes # (Auto) 0.9 x10^3/uL (0.0-1.1) Eosinophils # (Auto) 0.0 x10^3/uL (0.0-0.7) Basophils # (Auto) 0.1 x10^3/uL (0.0-0.2) Sodium Level 137 mmol/L (136-145) Potassium Level 2.4 mmol/L (3.5-5.1) 2.5 mmol/L (3.5-5.1) Chloride Level 95 mmol/L (98-107) Carbon Dioxide Level 29 mmol/L (21-32) Anion Gap 13 (6-14) Blood Urea Nitrogen 5 mg/dL (8-26) Creatinine 0.8 mg/dL (0.7-1.3) Estimated GFR (Cockcroft-Gault) 105.5 Glucose Level 97 mg/dL (70-99) Calcium Level 8.9 mg/dL (8.5-10.1) Test 01/16/19 04:30 White Blood Count 7.0 x10^3/uL (4.0-11.0) Red Blood Count 5.25 x10^6/uL (4.30-5.70) Hemoglobin 14.5 g/dL (13.0-17.5) Hematocrit 42.9 % (39.0-53.0) Mean Corpuscular Volume 82 fL (79-100) Mean Corpuscular Hemoglobin 28 pg (25-35) Mean Corpuscular Hemoglobin Concent 34 g/dL (31-37) Red Cell Distribution Width 13.2 % (11.5-14.5) Platelet Count 153 x10^3/uL (140-400) Neutrophils (%) (Auto) 62 % (31-73) Lymphocytes (%) (Auto) 26 % (24-48) Monocytes (%) (Auto) 11 % (0-9) Eosinophils (%) (Auto) 0 % (0-3) Basophils (%) (Auto) 1 % (0-3) Neutrophils # (Auto) 4.3 x10^3uL (1.8-7.7) Lymphocytes # (Auto) 1.8 x10^3/uL (1.0-4.8) Monocytes # (Auto) 0.8 x10^3/uL (0.0-1.1) Eosinophils # (Auto) 0.0 x10^3/uL (0.0-0.7) Basophils # (Auto) 0.0 x10^3/uL (0.0-0.2) Sodium Level 138 mmol/L (136-145) Potassium Level 2.8 mmol/L (3.5-5.1) Chloride Level 98 mmol/L (98-107) Carbon Dioxide Level 29 mmol/L (21-32) Anion Gap 11 (6-14) Blood Urea Nitrogen 8 mg/dL (8-26) Creatinine 0.8 mg/dL (0.7-1.3) Estimated GFR (Cockcroft-Gault) 105.5 Glucose Level 83 mg/dL (70-99) Calcium Level 9.2 mg/dL (8.5-10.1) Magnesium Level 2.1 mg/dL (1.8-2.4) Laboratory Tests Test 01/15/19 15:40 01/16/19 04:30 Potassium Level 2.5 mmol/L (3.5-5.1) 2.8 mmol/L (3.5-5.1) White Blood Count 7.0 x10^3/uL (4.0-11.0) Red Blood Count 5.25 x10^6/uL (4.30-5.70) Hemoglobin 14.5 g/dL (13.0-17.5) Hematocrit 42.9 % (39.0-53.0) Mean Corpuscular Volume 82 fL (79-100) Mean Corpuscular Hemoglobin 28 pg (25-35) Mean Corpuscular Hemoglobin Concent 34 g/dL (31-37) Red Cell Distribution Width 13.2 % (11.5-14.5) Platelet Count 153 x10^3/uL (140-400) Neutrophils (%) (Auto) 62 % (31-73) Lymphocytes (%) (Auto) 26 % (24-48) Monocytes (%) (Auto) 11 % (0-9) Eosinophils (%) (Auto) 0 % (0-3) Basophils (%) (Auto) 1 % (0-3) Neutrophils # (Auto) 4.3 x10^3uL (1.8-7.7) Lymphocytes # (Auto) 1.8 x10^3/uL (1.0-4.8) Monocytes # (Auto) 0.8 x10^3/uL (0.0-1.1) Eosinophils # (Auto) 0.0 x10^3/uL (0.0-0.7) Basophils # (Auto) 0.0 x10^3/uL (0.0-0.2) Sodium Level 138 mmol/L (136-145) Chloride Level 98 mmol/L (98-107) Carbon Dioxide Level 29 mmol/L (21-32) Anion Gap 11 (6-14) Blood Urea Nitrogen 8 mg/dL (8-26) Creatinine 0.8 mg/dL (0.7-1.3) Estimated GFR (Cockcroft-Gault) 105.5 Glucose Level 83 mg/dL (70-99) Calcium Level 9.2 mg/dL (8.5-10.1) Magnesium Level 2.1 mg/dL (1.8-2.4) Microbiology 01/14/19 Fecal Leukocyte Stain - Final, Complete Medications Current Medications Ondansetron HCl (Zofran) 4 mg 1X ONCE IV Last administered on 01/14/19at 01:01; Start 01/14/19 at 01:00; Stop 01/14/19 at 01:01; Status DC Famotidine (Pepcid Vial) 20 mg 1X ONCE IVP Last administered on 01/14/19at 01:00 ; Start 01/14/19 at 01:00; Stop 01/14/19 at 01:01; Status DC Ketorolac Tromethamine (Toradol 15mg Vial) 15 mg 1X ONCE IV Last administered on 01/14/19at 01:00; Start 01/14/19 at 01:00; Stop 01/14/19 at 01:01; Status DC Sodium Chloride 1,000 ml @ 1,000 mls/hr 1X ONCE IV Last administered on at 01:02; Start 01/14/19 at 01:00; Stop 01/14/19 at 01:59; Status DC Potassium Chloride (Klor-Con) 40 meq 1X ONCE PO ; Start 01/14/19 at 02:00; Stop 01/14/19 at 02:38; Status DC Ringer's Solution 1,000 ml @ 150 mls/hr 1X ONCE IV Last administered on at 03:43; Start 01/14/19 at 02:00; Stop 01/14/19 at 08:39; Status DC Ondansetron HCl (Zofran) 4 mg PRN Q8HRS PRN IV NAUSEA/VOMITING 1ST CHOICE Last administered on 01/14/19at 10:17; Start 01/14/19 at 02:00; Stop 01/15/19 at 01:59; Status DC Potassium Citrate (Urocit-K) 50 meq 1X ONCE PO ; Start 01/14/19 at 02:45; Stop 01/14/19 at 02:46; Status UNV Potassium Chloride (KCl Oral Soln) 40 meq 1X ONCE PO Last administered on at 02:48; Start 01/14/19 at 03:00; Stop 01/14/19 at 03:01; Status DC Potassium Chloride (Klor-Con) 40 meq 1X ONCE PO Last administered on 01/14/19at 12:14; Start 01/14/19 at 11:15; Stop 01/14/19 at 11:16; Status DC Chlorthalidone (Thalitone) 25 mg DAILY PO ; Start 01/14/19 at 12:30; Stop at 14:31; Status DC Metoprolol Succinate (Toprol Xl) 50 mg DAILY PO Last administered on 01/16/19 10:05; Start 01/14/19 at 12:30 Tramadol HCl (Ultram) 50 mg PRN Q8HRS PRN PO MILD PAIN Last administered on 01/16 10:09; Start 01/14/19 at 11:30 Atorvastatin Calcium (Lipitor) 10 mg QHS PO Last administered on 01/15/19 20:13 ; Start 01/14/19 at 21:00 Pantoprazole Sodium (Protonix) 40 mg DAILYAC PO Last administered on 01/16/19 06:11; Start 01/14/19 at 12:30 Chlorthalidone (Thalitone) 25 mg QHS PO Last administered on 01/14/19 20:57; Start 01/14/19 at 21:00; Status Future Hold Potassium Phosphate 13.6 mmol/Dextrose 104.5333 ml @ 52.267 m... Q2H IV Last administered on 01/14/19 22:23; Start 01/14/19 at 17:30; Stop 01/14/19 at 21:29; Status DC Acetaminophen/ Hydrocodone Bitart (Lortab 5/325) 1 tab QIDPRN PRN PO MOD- SEVERE PAIN Last administered on 01/16/19 04:35; Start 01/14/19 at 19:30 Potassium Chloride (Klor-Con) 40 meq 1X ONCE PO Last administered on 01/15/19 09:58; Start 01/15/19 at 10:30; Stop 01/15/19 at 10:31; Status DC Potassium Chloride (Klor-Con) 40 meq 1X ONCE PO Last administered on 01/15/19 14:28; Start 01/15/19 at 14:00; Stop 01/15/19 at 14:01; Status DC Potassium Chloride (Klor-Con) 40 meq 1X ONCE PO Last administered on 01/15/19 16:39; Start 01/15/19 at 17:00; Stop 01/15/19 at 17:01; Status DC Potassium Chloride (Klor-Con) 40 meq 1X ONCE PO Last administered on 01/15/19 20:13; Start 01/15/19 at 20:00; Stop 01/15/19 at 20:01; Status DC Potassium Chloride/Water 100 ml @ 100 mls/hr Q1H IV Last administered on at 08:25; Start 01/16/19 at 06:00; Stop 01/16/19 at 07:59; Status DC Potassium Chloride (Klor-Con) 40 meq 1X ONCE PO Last administered on 01/16/19at 06:11; Start 01/16/19 at 06:00; Stop 01/16/19 at 06:01; Status DC Potassium Chloride (Klor-Con) 40 meq 1X ONCE PO Last administered on 01/16/19at 10:06; Start 01/16/19 at 09:00; Stop 01/16/19 at 09:01; Status DC Potassium Chloride (Klor-Con) 40 meq 1X ONCE PO ; Start 01/16/19 at 12:00; Stop 01/16/19 at 12:01 Active Scripts Active Reported Tramadol Hcl 50 Mg Tablet 50 Mg PO Q8HRS PRN Aspirin 81 Mg Tab.chew 1 Tab PO DAILY Omeprazole 40 Mg Capsule.dr 40 Mg PO DAILY Lovastatin 40 Mg Tablet 40 Mg PO HS Toprol Xl (Metoprolol Succinate) 50 Mg Tab.er.24h 50 Mg PO DAILY Chlorthalidone 25 Mg Tablet 25 Mg PO DAILY Vitals/I & O Vital Sign - Last 24 Hours 01/15/19 01/15/19 01/15/19 01/15/19 11:04 14:32 15:02 15:32 Temp 98.8 98.3 98.8 98.3 Pulse 71 77 Resp 20 17 20 17 B/P (MAP) 124/85 (98) 120/79 (93) Pulse Ox 98 97 O2 Delivery Room Air Room Air Room Air Room Air 01/15/19 01/15/19 01/15/19 01/15/19 19:40 20:10 20:14 23:26 Temp 101.1 98.6 101.1 98.6 Pulse 85 66 Resp 16 16 18 B/P (MAP) 112/73 (86) 111/71 (84) Pulse Ox 96 97 O2 Delivery Room Air Room Air Room Air 01/16/19 01/16/19 01/16/19 01/16/19 03:11 04:35 07:00 10:05 Temp 98.3 98.3 98.3 98.3 Pulse 76 73 73 Resp 20 18 16 B/P (MAP) 118/78 (91) 117/75 (89) 117/75 Pulse Ox 98 98 O2 Delivery Room Air Room Air 01/16/19 01/16/19 10:09 10:39 Temp 98.5 98.5 Pulse 72 Resp 17 17 B/P (MAP) 123/77 (92) Pulse Ox 97 O2 Delivery Room Air Intake and Output 01/15/19 01/15/19 01/16/19 15:00 23:00 07:00 Intake Total 810 ml 560 ml 1100 ml Balance 810 ml 560 ml 1100 ml REZA CABRERA III DO Jan 16, 2019 11:09
--- NOTE | 2019-01-16 11:31 | PDOC ---
Subjective: Subjective: Tolerating PO, no abd pain, has "chunky and watery" stools - improved overall. No bleeding. Objective: Vital Signs: Vital Signs Date Time Temp Pulse Resp B/P (MAP) Pulse Ox O2 Delivery O2 Flow Rate FiO2 01/16/19 10:39 98.5 72 17 123/77 (92) 97 Room Air 98.5 Labs: Laboratory Tests Test 01/15/19 15:40 01/16/19 04:30 Potassium Level 2.5 mmol/L 2.8 mmol/L White Blood Count 7.0 x10^3/uL Red Blood Count 5.25 x10^6/uL Hemoglobin 14.5 g/dL Hematocrit 42.9 % Mean Corpuscular Volume 82 fL Mean Corpuscular Hemoglobin 28 pg Mean Corpuscular Hemoglobin Concent 34 g/dL Red Cell Distribution Width 13.2 % Platelet Count 153 x10^3/uL Neutrophils (%) (Auto) 62 % Lymphocytes (%) (Auto) 26 % Monocytes (%) (Auto) 11 % Eosinophils (%) (Auto) 0 % Basophils (%) (Auto) 1 % Neutrophils # (Auto) 4.3 x10^3uL Lymphocytes # (Auto) 1.8 x10^3/uL Monocytes # (Auto) 0.8 x10^3/uL Eosinophils # (Auto) 0.0 x10^3/uL Basophils # (Auto) 0.0 x10^3/uL Sodium Level 138 mmol/L Chloride Level 98 mmol/L Carbon Dioxide Level 29 mmol/L Anion Gap 11 Blood Urea Nitrogen 8 mg/dL Creatinine 0.8 mg/dL Estimated GFR (Cockcroft-Gault) 105.5 Glucose Level 83 mg/dL Calcium Level 9.2 mg/dL Magnesium Level 2.1 mg/dL PE: GEN: NAD LUNGS: CTAB HEART: RRR ABD: NABS, S/ND/NT NEURO/PSYCH: A & O 3 A/P: Diarrhea - improved Hypokalemia -- Potassium improved but still low. DC per primary. NORMAN BOWERS Jan 16, 2019 11:31
[2019-01-16 14:58] VITALS: BP 130/77
[2019-01-16] MEDS ORDERED: POTA20TA82 PO (17:17)
[2019-01-16] MEDS ORDERED: ALPR0.5T PO (17:20)
--- NOTE | 2019-01-16 19:00 | NUR ---
Pt discharged to home with . Discharge instructions reviewed. Verbalized understanding.
== END 2019-01-16 19:00 | disposition home or self-care (01) | DRG 392 ==
LOC: ER 23:40 → 6 SOUTH 01-14 01:52
PROVIDERS: ADMIT Internal Medicine; ATTEND Internal Medicine
DX: K52.9 Noninfective gastroenteritis and colitis, unspecified (principal); E87.6 Hypokalemia; E86.0 Dehydration; E78.00 Pure hypercholesterolemia, unspecified; E83.39 Other disorders of phosphorus metabolism; F41.9 Anxiety disorder, unspecified; I10 Essential (primary) hypertension; I25.10 Atherosclerotic heart disease of native coronary artery without angina pectoris; I25.2 Old myocardial infarction; K21.9 Gastro-esophageal reflux disease without esophagitis; Z82.49 Family history of ischemic heart disease and other diseases of the circulatory system; Z95.1 Presence of aortocoronary bypass graft; Z95.5 Presence of coronary angioplasty implant and graft
CPT/HCPCS: 36415; 74022; 80048; 80053; 81001; 82274; 82962; 83690; 83735; 84100; 84132; 85018; 85025; 87205; 87425; 93005; 96361; 96374; 96375; J1885; J2405; J3480; J3490; J7030; J7120; 99285-25